=== PATIENT | female | born 1985 | race African-American/Black ===

== ENCOUNTER 2016-11-26 19:42 | Emergency (ER) | payer OTHER | END 2016-11-26 20:09 | disposition home or self-care (01) | LOC: ER 19:42 | DX: S46.912A Strain of unspecified muscle, fascia and tendon at shoulder and upper arm level, left arm, initial encounter (principal); F17.210 Nicotine dependence, cigarettes, uncomplicated; V49.40XA Driver injured in collision with unspecified motor vehicles in traffic accident, initial encounter ==